=== PATIENT | male | born 1995 | race Two or more races ===

== ENCOUNTER 2025-03-08 12:17 | Inpatient (IN) | payer OTHER ==
[~2025-03-08] VITALS: Ht 170.2 cm; Wt 80.3 kg
[2025-03-08] MEDS ORDERED: diphenhydrAMINE HCL 50 MG/ML VIAL ONE (12:43)
[2025-03-08] MEDS ORDERED: HALOPERIDOL LACTATE INJ 5 MG/ML VIAL ONE (12:44)
[2025-03-08] MEDS ORDERED: LORAZEPAM INJ 2 MG/ML VIAL ONE (12:44)
[2025-03-08] MEDS: diphenhydrAMINE HCL 50 MG/ML VIAL IV ONE (12:47)
[2025-03-08] MEDS: LORAZEPAM INJ 2 MG/ML VIAL IV ONE (12:48)
[2025-03-08] MEDS: HALOPERIDOL LACTATE INJ 5 MG/ML VIAL IV ONE (12:49)
[2025-03-08] MEDS: IV NS 0.9% 1,000 ML BAG IV ONE (14:20)
[2025-03-08 14:46] LABS: BASOPHILS % (AUTO) 0.1 % (0.0-2.0); HEMATOCRIT 49 % (39-51); HEMOGLOBIN 16.3 g/dL (13.5-17.5); LYMPHOCYTES # (AUTO) 1.6 K/uL (0.8-4.8); LYMPHOCYTES % (AUTO) 5.6 % (20.0-44.0); MEAN CORPUSCULAR HEMOGLOBIN 31 PG (26.0-33.0); MEAN CORPUSCULAR HGB CONC 33 g/dl (31.0-36.0); MEAN CORPUSCULAR VOLUME 93 fL (80-96); MONOCYTES # (AUTO) 1.3 K/uL (0.1-1.30); MONOCYTES % (AUTO) 4.6 % (2.0-12.0); NEUTROPHILS # (AUTO) 25.7 K/uL (1.8-8.9); NEUTROPHILS % (AUTO) 89.7 % (43.0-81.0); PLATELET COUNT (AUTO) 513 K/uL (150-450); RED BLOOD CELL COUNT(AUTO) 5.32 MIL/uL (4.5-6.0); WHITE BLOOD COUNT (AUTO) 28.7 K/uL (4.3-11.0)
[2025-03-08 14:56] LABS: CALCIUM, SERUM 10.9 mg/dL (8.5-10.1); CARBON DIOXIDE 18 mmol/L (21-32); CHLORIDE 106 mmol/L (98-107); CREATININE 1.9 mg/dL (0.6-1.3); GLUCOSE 77 mg/dL (74-106); POTASSIUM 3.3 mmol/L (3.5-5.1); SODIUM SERUM 145 mmol/L (136-145); UREA NITROGEN, BLOOD 18 mg/dL (7-18)
[2025-03-08 15:01] LABS: ALANINE AMINOTRANSFERASE 141 U/L (12-78); ALBUMIN 5.3 g/dL (3.4-5.0); ALKALINE PHOSPHATASE 134 U/L (46-116); ASPARTATE AMINOTRANSFERASE 219 U/L (15-37); BILIRUBIN,DIRECT 0.3 mg/dL (0.0-0.2); BILIRUBIN,TOTAL 0.9 mg/dL (0.2-1.0); TOTAL PROTEIN, SERUM 10.4 g/dL (6.4-8.2)
[2025-03-08 15:03] LABS: ACETAMINOPHEN <10 ug/ml (10-30); ALCOHOL, BLOOD < 3 mg/dL (0-10); SALICYLATE 1.9 mg/dL (2.8-20.0)
[2025-03-08 15:12] LABS: CREATINE KINASE, TOTAL 2160 U/L (39-308)
[2025-03-08 18:15] LABS: APPEARANCE,URINE CLEAR (CLEAR); BILIRUBIN,URINE NEGATIVE (NEGATIVE); BLOOD, URINE 3+ Ery/uL (NEGATIVE); COLOR,URINE YELLOW (YELLOW); KETONES,URINE TRACE mg/dL (NEGATIVE); LEUKOCYTE ESTERASE ,URINE NEGATIVE (NEGATIVE); NITRITE, URINE NEGATIVE (NEGATIVE); PH,URINE 6.5 (5.0-8.0); PROTEIN,URINE 3+ mg/dl (NEGATIVE); UGLUCOSE NEGATIVE (NEGATIVE)
[2025-03-08 18:24] LABS: ADD URINE CULTURE NO; BACTERIA,URINE Few /HPF (None Seen); WBC,URINE 0-2 /HPF (0-3)
[2025-03-08 18:25] LABS: HYALINE CASTS, URINE Moderate /LPF (None Seen); SQUAMOUS EPITHELIAL CELL,UR None Seen /HPF (None Seen)
[2025-03-08 18:38] LABS: BARBITURATE, URINE NEGATIVE (NEGATIVE); COCCAINE, URINE NEGATIVE (NEGATIVE); PHENCYCLIDINE SCREEN,URINE NEGATIVE (NEGATIVE)
[2025-03-08 18:55] LABS: AMPHETAMINE, URINE POSITIVE (NEGATIVE); BENZODIAZEPINE, URINE POSITIVE (NEGATIVE); CANNABINOID, URINE POSITIVE (NEGATIVE); OPIATE, URINE POSITIVE (NEGATIVE)
[2025-03-08] MEDS ORDERED: MAG HYDROX/AL HYDROX/SIMETH 30 ML UDC PO PRN (19:30)
[2025-03-08] MEDS ORDERED: MAGNESIUM HYDROXIDE 30 ML UDC PO PRN (19:30)
[2025-03-08] MEDS: IV NS 0.9% 1,000 ML IV SCH (21:18)
[2025-03-08 21:21] VITALS: BP 147/106; TEMP 97.7; O2SAT 98
[2025-03-09] VITALS (7 sets, daily range): BP systolic 133–148; BP diastolic 81–100; TEMP 97.5–98.4; O2SAT 95–99
[2025-03-09] MEDS: TRAZODONE 50 MG TABLET PO SCH (00:32)
[2025-03-09] MEDS: PANTOPRAZOLE 40 MG VIAL IV SCH (09:15)
[2025-03-09] MEDS: ACETAMINOPHEN 325 MG TABLET PO PRN (12:22)
[2025-03-09] MEDS: IV NS 0.9% 1,000 ML IV PRN (12:31)
[2025-03-09] MEDS: diphenhydrAMINE HCL 50 MG/ML VIAL IV ONE (12:42)
[2025-03-09] MEDS: METOCLOPRAMIDE HCL 10 MG/2 ML VIAL IV ONE (12:42)
[2025-03-09 13:39] LABS: CREATININE, URINE 23.5 MG/DL (30.0-125.0); URINE TOTAL PROTEIN 23.2 mg/dL (0-11.9)
[2025-03-09] MEDS: diphenhydrAMINE HCL 25 MG CAPSULE PO ONE (17:04)
[2025-03-09] MEDS: ONDANSETRON HCL/PF 4 MG/2 ML VIAL IVP PRN (20:47)
[2025-03-10] VITALS (9 sets, daily range): BP systolic 123–143; BP diastolic 72–93; TEMP 97.7–99.9; O2SAT 98–100
[2025-03-10] MEDS: TRAZODONE 50 MG TABLET PO PRN (00:39)
[2025-03-10] MEDS: LORAZEPAM INJ 2 MG/ML VIAL IM PRN (04:31)
[2025-03-10 10:31] LABS: BASOPHILS # (AUTO) 0.1 K/uL (0.0-0.2); BASOPHILS % (AUTO) 0.5 % (0.0-2.0); HEMATOCRIT 42 % (39-51); HEMOGLOBIN 13.7 g/dL (13.5-17.5); LYMPHOCYTES # (AUTO) 0.7 K/uL (0.8-4.8); LYMPHOCYTES % (AUTO) 5.4 % (20.0-44.0); MEAN CORPUSCULAR HEMOGLOBIN 30 PG (26.0-33.0); MEAN CORPUSCULAR HGB CONC 33 g/dl (31.0-36.0); MEAN CORPUSCULAR VOLUME 93 fL (80-96); MONOCYTES # (AUTO) 0.6 K/uL (0.1-1.30); MONOCYTES % (AUTO) 4.5 % (2.0-12.0); NEUTROPHILS % (AUTO) 89.6 % (43.0-81.0); PLATELET COUNT (AUTO) 221 K/uL (150-450); RED CELL DISTRIBUTION WIDTH 13.8 % (11.5-15.0); WHITE BLOOD COUNT (AUTO) 13.4 K/uL (4.3-11.0)
[2025-03-10 10:48] LABS: ALANINE AMINOTRANSFERASE 2374 U/L (12-78); ALBUMIN 3.4 g/dL (3.4-5.0); ALKALINE PHOSPHATASE 98 U/L (46-116); ASPARTATE AMINOTRANSFERASE > 1000 U/L (15-37); BILIRUBIN,TOTAL 0.9 mg/dL (0.2-1.0); CALCIUM, SERUM 8.6 mg/dL (8.5-10.1); CARBON DIOXIDE 17 mmol/L (21-32); CHLORIDE 106 mmol/L (98-107); CREATININE 1.6 mg/dL (0.6-1.3); GLUCOSE 125 mg/dL (74-106); MAGNESIUM 1.8 mg/dL (1.8-2.4); PHOSPHORUS 1.9 mg/dL (2.5-4.9); POTASSIUM 3.8 mmol/L (3.5-5.1); SODIUM SERUM 135 mmol/L (136-145); UREA NITROGEN, BLOOD 20 mg/dL (7-18)
[2025-03-10 10:51] LABS: CREATINE KINASE, TOTAL 7889 U/L (39-308)
[2025-03-10] MEDS ORDERED: K PHOS NEUTRAL 250 MG TABLET PO ONE (16:00)
[2025-03-11] MEDS ORDERED: PANTOPRAZOLE 40 MG TABLET.DR PO SCH (09:00)
== END 2025-03-10 13:06 | disposition left against medical advice (07) | DRG 351 ==
LOC: EDBD 12:22 → ER 12:22 → TELE-TD 20:33 → TELE1 20:38
PROVIDERS: ATTEND Nurse Practitioner Family
DX: M62.82 Rhabdomyolysis (principal); K72.00 Acute and subacute hepatic failure without coma; N17.9 Acute kidney failure, unspecified; E83.9 Disorder of mineral metabolism, unspecified; E87.1 Hypo-osmolality and hyponatremia; E87.6 Hypokalemia; M89.8X9 Other specified disorders of bone, unspecified site; Z20.822 Contact with and (suspected) exposure to COVID-19; D72.829 Elevated white blood cell count, unspecified; R94.5 Abnormal results of liver function studies; R74.01 Elevation of levels of liver transaminase levels; E86.9 Volume depletion, unspecified; F11.10 Opioid abuse, uncomplicated; F15.10 Other stimulant abuse, uncomplicated; F12.10 Cannabis abuse, uncomplicated; F13.10 Sedative, hypnotic or anxiolytic abuse, uncomplicated
CPT/HCPCS: 36415; 70450-TC; 71045-TC; 76700-TC; 80048-TC; 80053-TC; 80076-TC; 81001; 82550-TC; 82553; 82570-TC; 83735-TC; 84100-TC; 84300-TC; 84443-TC; 85025-TC; 87081-TC; A4223; G0378; G0480; J1200; J1630; J2060; J2405; J2470; J2765; J7030; Q0163